=== PATIENT | female | born 1945 | race Caucasian/White ===

== ENCOUNTER → 2025-04-18 13:41 | Outpatient (REF) | payer MEDICARE, SELFPAY | LOC: RAD 13:41 | PROVIDERS: ATTENDING PHYSICIAN Nurse Practitioner; FAMILY PHYSICIAN Family Medicine | DX: R35.0 Frequency of micturition (principal); R39.15 Urgency of urination; N81.6 Rectocele | CPT/HCPCS: 76770; 76856 ==